=== PATIENT | female | born 1990 | race Caucasian/White ===

== ENCOUNTER 2018-12-07 12:19 | Emergency (ER) | payer MEDICAID ==
[2018-12-07] MEDS ORDERED: HYDROGEN PEROXIDE 236 ML BOTTLE TP ONE (13:19)
--- NOTE | 2018-12-07 13:33 | EDPHY ---
General Time Seen by Provider: 12/07/18 12:38 Narrative: CLINICAL IMPRESSION: Sudden left-sided hearing loss ASSESSMENT/PLAN: 28-year-old otherwise healthy female presents to the emergency department with relatively sudden onset left-sided hearing loss associated with tinnitus. No loud noise exposure recent illness, rash, herpes, head trauma, dizziness or vertigo. She has partially occluding cerumen in the ear canal with fully visible tympanic membrane no evidence of perforation, middle ear effusion, serous otitis media, cholesteatoma, or foreign body. I am concerned she may have a sudden sensorineural hearing loss. I have instructed her to follow up with audiology and contacted Dr. Dennison's office. She will immediately go up stairs to the audiology office for hearing test 1st. Warning signs return to ED sooner discussed and discharge. DIFFERENTIAL DX: Differential includes but not limited to conductive hearing loss, foreign body, TM perforation, middle ear effusion, sudden sensorineural hearing loss ED PROCEDURES: See lab and/or imaging results below Patient was intolerant of attempts to remove cerumen CHIEF COMPLAINT: Sudden Hearing loss, tinnitus HPI: 28-year-old female presents to the emergency department with sudden onset left- sided hearing loss associated with tinnitus and feeling off balance. No history of head trauma, loud noise exposure, previous hearing loss, rash, herpes , or heavy use of NSAIDs. She has been using Excedrin tension recently. She reports no prior ear surgery or discharge from the ear. No pain. She has not taken anything for her symptoms. She estimates a 90% loss in her hearing. PAST MEDICAL HISTORY: None reported See triage summary and nurse notes for addition applicable history Pertinent Past Surgical History: None reported Family History: Noncontributory Social History: Student at [employer] REVIEW OF SYSTEMS: A full 10 point review of systems was negative except for those mentioned in HPI. PHYSICAL EXAM: General Appearance: Alert, oriented, appropriate, cooperative, NAD, well hydrated, non-toxic appearing, VSS, no hypoxia. HEENT: Obstructive cerumen in right ear canal, unable to visualize tympanic membrane, partially obstructed cerumen in left ear canal, fully visualized tympanic membrane, no perforation, cholesteatoma, otorrhea, foreign body. no evidence of serous or mucopurulent otitis. Oropharynx clear is no erythema or exudates, no tonsillar hypertrophy or asymmetry. Dentition without abnormality. Neck: Supple, nontender, no lymphadenopathy, no midline pain, FROM, no meningismus. MEDICAL DECISION MAKING: Patient was seen independently. Secondary supervising physician at time of evaluation was: Dr Castillo. Diagnosis: Sudden-onset left-sided hearing loss, tinnitus. New, requires workup Summary: See Assessment and Plan for summary of ED visit Patient Progress: Stable for discharge. - History Smoking Status: Never smoked - Objective Vital Signs: Initial Vital Signs Temperature (C) 36.7 C 12/07/18 12:30 Heart Rate 87 12/07/18 12:30 Respiratory Rate 16 12/07/18 12:30 Blood Pressure 126/94 H 12/07/18 12:30 O2 Sat (%) 99 12/07/18 12:30 O2 Delivery Mode Room Air Allergies/Adverse Reactions: No Known Allergies Allergy (Unverified 12/07/18 12:32) Departure - Departure Disposition: Home, Routine, Self-Care Clinical Impression: Hearing loss Qualifiers: Hearing loss type: other Laterality: left Contralateral hearing status: unspecified Qualified Code(s): H91.8X2 - Other specified hearing loss, left ear Condition: Fair Instructions: Hearing Loss (ED) Additional Instructions: DISCHARGE INSTRUCTIONS FROM YOUR DOCTOR Thank you for visiting our emergency department today. You were treated by a physician radiology physician assistant today and your case was reviewed with our ED Attending physician. Please keep in mind that discharge from the emergency department does not mean that there is nothing wrong - it simply means that we have not identified an emergency condition that requires further evaluation or treatment in the hospital. You should always plan to follow up with primary care for re- evaluation of your condition in the next 2-3 days. If you have been referred to a specialist, please call as soon as possible (today or tomorrow) to schedule your follow up appointment at the appropriate time. [ YOU DID HAVE OCCLUDED WAX IN THE RIGHT EAR AND PARTIALLY OCCLUDED WAX IN THE LEFT EAR HOWEVER I WAS ABLE TO SEE THE TYMPANIC MEMBRANE ON THE LEFT. IT DOES NOT APPEAR TO HAVE A HOLE IN IT OR INFECTION. I WOULD LIKE YOU TO HAVE AN AUDIOGRAM TO RULE OUT SUDDEN SENSORINEURAL HEARING LOSS. SHE WAS REFERRED TO DR. DENNISON'S OB GYN PHYSICIAN ASSISTANT, DR. CARLSON. I WAS UNFORTUNATELY UNABLE TO REACH THIS OB GYN PHYSICIAN ASSISTANT AND WOULD REQUEST THAT YOU WALK TO THE OFFICE WHICH IS JUST UP [address]. IF YOU DO NOT HAVE LUCK THERE, YOU CAN GO DOWNSTAIRS TO [facility] WHO ALSO HAS AN OB GYN PHYSICIAN ASSISTANT.] People present with illnesses and injuries in different ways, and it is always possible that we have missed something. You may always return for re-evaluation if symptoms worsen or if they are not improving or if you develop new/different symptoms. Again, thank you for choosing our emergency department. We hope that you feel better. Referrals: NONE *PRIMARY CARE P,. [Primary Care Provider] - As per Instructions Dago Dennison MD [Medical Doctor] - As per Instructions
[2018-12-07 13:57] VITALS: BP 117/78
== END 2018-12-07 13:57 | disposition home or self-care (01) ==
PROC: 3E1B78Z Irrigation of Ear using Irrigating Substance, Via Natural or Artificial Opening (ICD-10-PCS; principal; 2018-12-07)
DX: H91.8X2 Other specified hearing loss, left ear (principal)